=== PATIENT | female | born 1985 | race Two or more races ===

== ENCOUNTER 2019-03-20 02:51 | Emergency (ER) | payer BC ==
[~2019-03-20] VITALS: Ht 172.7 cm; Wt 62.6 kg
[2019-03-20 03:12] VITALS: BP 113/66
--- NOTE | 2019-03-20 03:12 | NUR ---
BIBS. C/O RLQ PAIN X 1 HOUR. +N/-V. PREGANT 21 WEEKS, LAST US ON SATURDAY TO ER BED 16 AWAITING MD LANDRY
--- NOTE | 2019-03-20 03:19 | NUR ---
Patient discharged to home in stable condition. Written and verbal after care instructions given. Patient verbalizes understanding of instruction. Addendum: 03/20/19 at 0319 by JANELLE Patient does not wish to proceed with medical care recommended by Dr. Morris. Patient given information related to possible complications, up to and including , which could occur as a result of leaving the hospital at this time. Patient verbalizes understanding of risks involved due to leaving against medical advice. Patient has signed AMA form.
== END 2019-03-20 03:20 | disposition left against medical advice (07) ==
LOC: ER 02:51
DX: O26.892 Other specified pregnancy related conditions, second trimester (principal); Z91.040 Latex allergy status; Z3A.21 21 weeks gestation of pregnancy